=== PATIENT | male | born 1970 | race African-American/Black ===

== ENCOUNTER 2021-06-28 01:32 | Day surgery (SDC) | payer OTHER, SELFPAY ==
[2021-06-12 13:17] VITALS: BMI 32.3
--- NOTE | 2021-06-27 13:42 | PM.HPGS ---
History of Present Illness History of Present Illness Consent: Risks, benefits, and alternatives have been discussed and questions answered. Patient agrees to proceed with procedure. Chief complaint: neoplasm screening Narrative: Jelani Oliveira is a 51 year old male who was referred for colon cancer screening. Review of Systems Review of Systems: All systems reviewed & are unremarkable except as noted in HPI and below PMFSH Past Medical History Medical History (Updated 06/28/21 @ 08:53 by Bull Madera MD) Hyperlipidemia Family History Family History Father Hypertension Family history of elevated blood lipids Family history of cardiovascular disease Mother Hypertension Family history of cardiovascular disease Social History Social History Smoking status: Never smoker Alcohol intake: former Substance use: never Substance use type: does not use Living arrangements: with family Spiritual care concerns: No Meds Home Medications and Allergies Home Medications Medication Instructions Recorded Confirmed Type atorvastatin 10 mg tablet 10 mg PO DAILY #90 tablet 01/30/21 06/28/21 Rx ferrous sulfate 325 mg (65 mg 325 mg PO DAILY 01/30/21 06/28/21 History iron) tablet multivitamin 1 tablet PO DAILY 01/30/21 06/28/21 History sildenafil 50 mg tablet 50 mg PO DAILY PRN #10 tablet 02/27/21 06/28/21 Rx Allergies Allergy/AdvReac Type Severity Reaction Status Date / Time No Known Allergies Allergy Verified 06/28/21 08:38 Exam Resp: Auscultation: clear to auscultation bilaterally Cardio: Rate: regular rate Rhythm: regular rhythm GI: GI Palp: Yes Soft to palpation and No Tenderness to palpation present (GI) Assessment and Plan Assessment and plan (1) Colon cancer screening: Code(s): Z12.11 - Encounter for screening for malignant neoplasm of colon Status: Acute Assessment and Plan: Colonoscopy with possible biopsy or polypectomy or cautery or injection of substances.
[2021-06-28 08:40] VITALS: BP 143/97; PULSE 83; RESP 15; TEMP 36.7; O2SAT 99
[2021-06-28] MEDS: LACTATED RINGERS 1,000 ML 150 ML IV CONT (08:45)
--- NOTE | 2021-06-28 09:05 | WPDANESEPPF ---
Anes - Initial Pre Proc Eval Procedure: Operation Date: 06/28/21 09:30 Proposed Procedures p Screening Colonoscopy - Holland Pastrana MD Date/Time: 06/28/21 09:05 Surgeon: Holland Pastrana MD Pre Op Diagnosis: neoplasm screening Patient Data Age: 51 Gender: M Height: 1.78 m Weight: 102.27 kg Last Vital Signs Temp 98.1 F 06/28/21 08:40 Pulse 83 06/28/21 08:40 Resp 15 06/28/21 08:40 BP 143/97 H 06/28/21 08:40 Pulse Ox 99 06/28/21 08:40 Allergies Allergy/AdvReac Type Severity Reaction Status Date / Time No Known Allergies Allergy Verified 06/28/21 08:38 Home Medications Medication Instructions Recorded Confirmed Type atorvastatin 10 mg tablet 10 mg PO DAILY #90 tablet 01/30/21 06/28/21 Rx ferrous sulfate 325 mg (65 mg 325 mg PO DAILY 01/30/21 06/28/21 History iron) tablet multivitamin 1 tablet PO DAILY 01/30/21 06/28/21 History sildenafil 50 mg tablet 50 mg PO DAILY PRN #10 tablet 02/27/21 06/28/21 Rx Patient hx anesthesia problems: none Family hx anesthesia problems: none Results Review: All pre-operative results and documents have been reviewed as part of the pre-operative evaluation. [facility] Past Medical History Medical History (Updated 06/28/21 @ 08:53 by Bull Madera MD) Hyperlipidemia Family History Family History Father Hypertension Family history of elevated blood lipids Family history of cardiovascular disease Mother Hypertension Family history of cardiovascular disease Social History Social History Smoking status: Never smoker Alcohol intake: former Substance use: never Substance use type: does not use Living arrangements: with family Spiritual care concerns: No Anes - Eval Final PreProcedure Day of Procedure 06/28/21 09:05 Patient weight: obese Heart: regular rate and rhythm Lungs: clear to auscultation Airway: Mallampati scale class II Neurological: alert and oriented Last oral intake: >/= 8 hours ASA classification: II Emergent: no Anesthetic plan: proceed Anesthesia type and monitoring: general GIVS and standard monitoring Results Review: All pre-operative results and documents have been reviewed as part of the pre-operative evaluation. Informed Consent: The patient's anesthetic plan and its attendant risks and benefits were discussed with the patient/family/POA. Questions were solicited and answers provided to the satisfaction of the patient/family/POA.
[2021-06-28 09:59] VITALS: BP 116/74; PULSE 79; RESP 21; O2SAT 99
[2021-06-28 10:09] VITALS: BP 135/95; PULSE 75; RESP 20; O2SAT 100
[2021-06-28 10:18] VITALS: BP 150/106; PULSE 66; RESP 17; O2SAT 99
== END 2021-06-28 10:30 | disposition home or self-care (01) ==
PROVIDERS: PCP Family Medicine; Visit Provider Internal Medicine Gastroenterology
PROC: 0DJD8ZZ Inspection of Lower Intestinal Tract, Via Natural or Artificial Opening Endoscopic (ICD-10-PCS; CPT 45378; principal; 2021-06-28 09:30)
DX: Z12.11 Encounter for screening for malignant neoplasm of colon (principal); E78.5 Hyperlipidemia, unspecified; E66.9 Obesity, unspecified; Z68.32 Body mass index [BMI] 32.0-32.9, adult
CPT/HCPCS: 45378; J2704; J7120

== ENCOUNTER 2024-03-18 08:12 | Outpatient (CLI) | payer OTHER, SELFPAY ==
[2024-03-18 14:44] LABS: Alanine Aminotransferase 18 U/L (6-50); Albumin Level 4.6 g/dL (3.5-5.1); Alkaline Phosphatase 60 U/L (38-126); Anion Gap 11 mmol/L (4-12); Aspartate Amino Transferase 54 U/L (17-59); Bilirubin,Total 0.6 mg/dL (0.2-1.3); Blood Urea Nitrogen 16 mg/dL (9-20); Calcium 9.8 mg/dL (8.4-10.2); Carbon Dioxide 29 mmol/L (22-30); Chloride 101 mmol/L (98-107); Cholesterol 155 mg/dL (0-200); Estimated Glomerular Filt Rate > 60; Glucose 83 mg/dL (65-110); HDL Direct 47 mg/dL; Potassium 3.8 mmol/L (3.4-5.0); Sodium 141 mmol/L (137-145); Triglycerides 66 mg/dL (<150)
[2024-03-18 14:55] LABS: LDL Cholesterol Direct 92 mg/dL
== END 2024-03-18 08:13 | disposition home or self-care (01) ==
LOC: ANHGOSHLAB 08:13
PROVIDERS: PCP Family Medicine; Visit Provider Family Medicine
DX: D64.9 Anemia, unspecified (principal); E78.5 Hyperlipidemia, unspecified; I10 Essential (primary) hypertension
CPT/HCPCS: 36415; 80053; 80061

== ENCOUNTER 2025-04-26 07:53 | Outpatient (CLI) | payer OTHER, SELFPAY ==
[2025-04-26 12:52] LABS: Hematocrit 47.2 % (42.0-52.0); Hemoglobin 14.3 g/dL (14.0-18.0); Mean Corpuscular HGB Conc 30.3 g/dl (32-36); Mean Corpuscular Hemoglobin 22.8 pg (26-34); Mean Corpuscular Volume 75.2 fl (80-100); Platelet Count Result 214 k/mm3 (150-375); Red Blood Count 6.28 M/mm3 (4.6-6.20); White Blood Count 6.0 K/mm3 (4.5-10.0)
[2025-04-26 14:33] LABS: Alanine Aminotransferase 19 U/L (6-50); Albumin Level 4.3 g/dL (3.5-5.1); Alkaline Phosphatase 61 U/L (38-126); Anion Gap 7 mmol/L (4-12); Aspartate Amino Transferase 45 U/L (17-59); Bilirubin,Total 0.6 mg/dL (0.2-1.3); Blood Urea Nitrogen 10 mg/dL (9-20); Calcium 9.8 mg/dL (8.4-10.2); Carbon Dioxide 26 mmol/L (22-30); Chloride 105 mmol/L (98-107); Cholesterol 168 mg/dL (0-200); Estimated Glomerular Filt Rate > 60; Glucose 78 mg/dL (65-110); HDL Direct 44 mg/dL; Potassium 4.5 mmol/L (3.4-5.0); Sodium 138 mmol/L (137-145); Total Protein 7.4 g/dL (6.3-8.2); Triglycerides 66 mg/dL (<150)
[2025-04-26 15:06] LABS: Prostate Specific Antigen 1.8 ng/mL (< OR = 4.0); Thyroid Stimulating Hormone 2.260 uIU/mL (0.465-4.680)
== END 2025-04-26 07:54 | disposition home or self-care (01) ==
PROVIDERS: PCP Family Medicine; Visit Provider Family Medicine
DX: E78.5 Hyperlipidemia, unspecified (principal); I10 Essential (primary) hypertension; Z79.899 Other long term (current) drug therapy; Z12.5 Encounter for screening for malignant neoplasm of prostate
CPT/HCPCS: 36415; 80053; 80061; 84153; 84443; 85027; G0103

== ENCOUNTER 2025-05-18 13:56 | Observation (INO) | payer OTHER, SELFPAY ==
[2025-05-18] VITALS (40 sets, daily range): BP systolic 130–156; BP diastolic 90–112; PULSE 69–91; RESP 11–26; TEMP 36.6–36.7; O2SAT 95–100; BMI 30.5
--- NOTE | ~2025-05-18 | NM_ITS ---
EXAMINATION: NM stress w perf spect multi DATE: 05/19/2025 12:49 INDICATION: Abnormal EKG TECHNIQUE: Rest images were obtained following intravenous administration of 11 mCi Tc99m tetrofosmin (Myoview). The patient performed an exercise activity. At peak exercise, 35.3 mCi Tc99m tetrofosmin (Myoview) was administered intravenously, and stress images were obtained. Data was reconstructed into short axis and horizontal and vertical long axis SPECT images. Gated SPECT images were also obtained. COMPARISON: None. FINDINGS: There is normal left ventricular perfusion without definite evidence of reversible or fixed perfusion abnormality to suggest ischemia or infarction. There is normal left ventricular chamber size, wall motion and ejection fraction. Left ventricular ejection fraction measures 52%. IMPRESSION: 1. Normal myocardial perfusion at rest and during stress. 2. Left ventricular ejection fraction measuring 52%. Reviewed, dictated and finalized at location A.
--- NOTE | ~2025-05-18 | XR_ITS ---
EXAMINATION: XR chest 2V 05/18/2025 14:45 INDICATION: Weakness PROCEDURE: 2 view chest COMPARISON: No prior studies for comparison. FINDINGS: The lungs are clear. The cardiomediastinal silhouette is within normal limits. There are no pleural effusions. There is no pneumothorax suspected. IMPRESSION: 1: NO ACUTE CARDIOPULMONARY DISEASE. Reviewed, dictated and finalized at location O.
--- NOTE | 2025-05-18 14:12 | ECG_ITS ---
Test Date: 2025-05-18 14:17:22 Measurements Intervals [place] Rate: 71 P: 54 AR: 188 QRS: 47 QRSD: 105 T: 71 QT: 404 QTc: 439 Interpretive Statements SINUS RHYTHM No previous ECG available for comparison Electronically Signed On 05-19-2025 15:01:44 CDT by Rickie Guzman M.D.
--- NOTE | 2025-05-18 14:24 | PC.NURSE ---
Patient given sandwich and juice per verbal order from Dr. Begum
[2025-05-18 14:29] LABS: Hematocrit 47.6 % (42.0-52.0); Hemoglobin 14.8 g/dL (14.0-18.0); Immature Granulocyte Percent A 0.4 % (0-0.5); Lymphocytes Absolute Auto 1.68 K/mm3 (0.9-3.2); Mean Corpuscular HGB Conc 31.1 g/dl (32-36); Mean Corpuscular Hemoglobin 23.0 pg (26-34); Mean Corpuscular Volume 73.9 fl (80-100); Nucleated Red Blood Cells Absolute Auto 0.000 K/mm3 (0.0-0.012); Nucleated Red Blood Cells Perc 0.0 % (0.0-0.2); Platelet Count Result 187 k/mm3 (150-375); Red Blood Count 6.44 M/mm3 (4.6-6.20); White Blood Count 9.6 K/mm3 (4.5-10.0)
[2025-05-18 14:43] LABS: Alanine Aminotransferase 24 U/L (6-50); Albumin Level 4.8 g/dL (3.5-5.1); Alkaline Phosphatase 78 U/L (38-126); Anion Gap 12 mmol/L (4-12); Aspartate Amino Transferase 37 U/L (17-59); Bilirubin,Total 0.5 mg/dL (0.2-1.3); Blood Urea Nitrogen 16 mg/dL (9-20); Calcium 10.1 mg/dL (8.4-10.2); Carbon Dioxide 27 mmol/L (22-30); Chloride 95 mmol/L (98-107); Estimated CRCL calculation 79 ml/min; Estimated Glomerular Filt Rate > 60; Glucose 145 mg/dL (65-110); Potassium 3.5 mmol/L (3.4-5.0); Sodium 134 mmol/L (137-145); Total Protein 8.1 g/dL (6.3-8.2)
--- NOTE | 2025-05-18 14:43 | ED_ITS ---
HPI - Dizziness General Chief Complaint: Dizziness Stated Complaint: dizzy & weak during workout, B.S. 41 Time Seen by Provider: 05/18/25 14:17 History of Present Illness HPI Narrative: Pt was at gym and developed feeling of dizziness and felt weak and lightheaded. Pt denies CP or palpitations or recent black or bloody stools or fever. EMS reports blood sugar was 41 and gave oral glucose and patient now feels better. Family reports this same thing happened 5 days ago at home but symptoms resolved. Pt has no history of hypoglycemia and ate normal breakfast this am. Related Data Home Medications ?Medication ?Instructions ?Recorded ?Confirmed ?Last Taken ?Type ferrous sulfate 325 mg (65 mg 325 mg PO DAILY 01/30/21 04/27/25 06/23/21 History iron) tablet (Feosol) multivitamin 1 tablet PO DAILY 01/30/21 0 04/27/25 Unknown History Allergies Allergy/AdvReac Type Severity Reaction Status Date / Time lisinopril AdvReac Mild dry cough Verified 04/27/25 08:59 Review of Systems 2 Review of Systems: All systems reviewed & are unremarkable except as noted in HPI and below PMFSH Past Medical History Medical History Hyperlipidemia Family History Family History Father Hypertension Family history of elevated blood lipids Family history of cardiovascular disease Mother Hypertension Family history of cardiovascular disease Social History Social History Smoking status: Never smoker Second hand tobacco smoke exposure: No Alcohol intake: former Substance use: never Substance use type: does not use Lack of Transportation: No Lack of Food: Never True Current Housing: I Have Housing Concerned About Future Housing: No Difficulty Paying Gas/Electric Bills: No Difficulty Paying for Meds: No Currently Unemployed: No Education: Bachelor's Degree Difficulty w/ Childcare or Family Care: No Living arrangements: with family Spiritual care concerns: No Exam 2 Const: General: healthy appearing and no acute distress Nutritional Appearance: well nourished Orientation/consciousness: patient oriented x3 Limitations: no limitations HENMT: Head: normal to inspection Face and sinus: normal facial exam M outh: Yes Normal oral and palatal mucosa present Throat: posterior oropharynx normal Eyes: Pupils: Equal, round and reactive pupils present EOM: EOMs intact bilaterally Neck: Neck: normal visual inspection Chest: Chest palpation & inspection: normal inspection of the chest Resp: Effort & Inspection: normal respiratory effort Auscultation: clear to auscultation bilaterally Cardio: Rate: regular rate Rhythm: regular rhythm GI: GI Palp: Yes Soft to palpation and Yes Tenderness to palpation present (GI) Auscultation: normal bowel sounds Skin: General skin exam: normal color Rashes: no rashes Wounds: no wounds Neuro: General: patient oriented x3, moves all extremities, no meningeal signs, no focal motor deficits and CN's II-XI intact bilaterally Speech: n ormal speech Extrem: General: normal to inspection and no clubbing, cyanosis or edema Psych: Mental Status: mental status grossly normal Affect: normal affect Attitude: cooperative Course Vital Signs Vital signs: Vital Signs Temperature 98.1 F 05/18/25 14:04 Pulse Rate 74 05/18/25 14:04 Respiratory Rate 17 05/18/25 14:04 Blood Pressure 156/97 H 05/18/25 14:04 Pulse Oximetry 100 05/18/25 14:04 Oxygen Delivery Room Air 05/18/25 14:04 Temperature 98.1 F 05/18/25 14:13 Pulse Rate 77 05/18/25 18:50 Respiratory Rate 16 05/18/25 18:50 Blood Pressure 136/112 H 05/18/25 18:50 Pulse Oximetry 95 05/18/25 18:50 Oxygen Delivery Room Air 05/18/25 14:13 MDM - Dizziness MDM Narrative Medical decision making narrative: Pt presents with dizziness and hypoglycemia. Pt better now. Will run some labs and recheck and feed pt. Pt has slight st depression in inferior and lateral leads on initial EKG, this has mostly resolved on 2mnd ekg which is troubling. discussed with Dr Cardoso and sent her both EKG's and she would prefer to admit tonight so she can stress him tomorrow. Discussed with Cary Milan and agrees t admit Differential Diagnosis Differential diagnosis: Likely benign paroxysmal positional vertigo, orthostatic hypotension, acute vestibular neuronitis and other (hypoglycemia) Lab Data Attestation: I reviewed the patient's lab results. 05/18/25 14:21 05/18/25 14:21 Labs: Lab Results 0905/18/25 05/18/25 Range/Units 14:10 14:21 14:53 WBC 9.6 (4.5-10.0) K/mm3 RBC 6.44 H (4.6-6.20) M/mm3 Hgb 14.8 (14.0-18.0) g/dL Hct 47.6 (42.0-52.0) % MCV 73.9 L (80-100) fl MCH 23.0 L (26-34) pg MCHC 31.1 L (32-36) g/dl RDW 14.8 H (11.5-14.5) % Plt Count 187 (150-375) k/mm3 MPV 10.3 (7.4-10.4) fl Immature Gran % (Auto) 0.4 (0-0.5) % Neut % (Auto) 71.4 (45.5-73.1) % Lymph % (Auto) 17.4 L (18.3-44.2) % [place] % (Auto) 7.1 (2.6-8.5) % Eos % (Auto) 3.3 (0-4.4) % Baso % (Auto) 0.4 (0.2-1.2) % Lymph # (Auto) 1.68 (0.9-3.2) K/mm3 [place] # (Auto) 0.7 H (0.1-0.6) K/mm3 Eos # (Auto) 0.3 (0-0.3) K/mm3 Baso # (Auto) 0.0 (0.0-0.1) K/mm3 Abs Immat Gran (auto) 0.04 H (0.00-0.031) K/mm3 Absolute Neuts (auto) 6.9 H (1.3-6.7) K/mm3 Absolute Nucleated RBC 0.000 (0.0-0.012) K/mm3 Band Neutrophils % Not Reportable Nucleated RBC % 0.0 (0.0-0.2) % Atypical Lymphocytes Present Platelet Estimate Adequate (Adequate) Microcytosis 1+ (NORMAL) Schistocytes None seen Sodium 134 L (137-145) mmol/L Potassium 3.5 (3.4-5.0) mmol/L Chloride 95 L (98-107) mmol/L Carbon Dioxide 27 (22-30) mmol/L Anion Gap 12 (4-12) mmol/L BUN 16 (9-20) mg/dL Creatinine 1.11 (0.7-1.3) mg/dL Estim Creat Clear Calc 79 ml/min Estimated GFR > 60 (59 - ) Glucose 145 H (65-110) mg/dL POC Capillary Glucose 158 H (65-105) mg/dl Calcium 10.1 (8.4-10.2) mg/dL Total Bilirubin 0.5 (0.2-1.3) mg/dL AST 37 (17-59) U/L ALT 24 (6-50) U/L Alkaline Phosphatase 78 (38-126) U/L Troponin I < 0.012 (0.000-0.034) ng/mL Total Protein 8.1 (6.3-8.2) g/dL Albumin 4.8 (3.5-5.1) g/dL Urine Color Dark yellow (Yellow) Urine Appearance Clear (Clear) Urine pH 7.0 (5.0-9.0) Ur Specific [place] 1.016 (1.001-1.035) Urine Protein Negative (Negative) mg/dL Urine Glucose (UA) Negative (Negative) mg/dL Urine Ketones 2+ H (Negative) mg/dL Ur Blood (Man) Negative (Negative) Urine Nitrate Negative (Negative) Urine Bilirubin Negative (Negative) Urine Urobilinogen 0.2 (<2.0) mg/dL Leukocyte Esterase Rfl Negative (Negative) SHEN/UL 05/18/25 05/18/25 Range/Units 15:44 17:19 WBC (4.5-10.0) K/mm3 RBC (4.6-6.20) M/mm3 Hgb (14.0-18.0) g/dL Hct (42.0-52.0) % MCV (80-100) fl MCH (26-34) pg MCHC (32-36) g/dl RDW (11.5-14.5) % Plt Count (150-375) k/mm3 MPV (7.4-10.4) fl Immature Gran % (Auto) (0-0.5) % Neut % (Auto) (45.5-73.1) % Lymph % (Auto) (18.3-44.2) % [place] % (Auto) (2.6-8.5) % Eos % (Auto) (0-4.4) % Baso % (Auto) (0.2-1.2) % Lymph # (Auto) (0.9-3.2) K/mm3 [place] # (Auto) (0.1-0.6) K/mm3 Eos # (Auto) (0-0.3) K/mm3 Baso # (Auto) (0.0-0.1) K/mm3 Abs Immat Gran (auto) (0.00-0.031) K/mm3 Absolute Neuts (auto) (1.3-6.7) K/mm3 Absolute Nucleated RBC (0.0-0.012) K/mm3 Band Neutrophils % Nucleated RBC % (0.0-0.2) % Atypical Lymphocytes Platelet Estimate (Adequate) Microcytosis (NORMAL) Schistocytes Sodium (137-145) mmol/L Potassium (3.4-5.0) mmol/L Chloride (98-107) mmol/L Carbon Dioxide (22-30) mmol/L Anion Gap (4-12) mmol/L BUN (9-20) mg/dL Creatinine (0.7-1.3) mg/dL Estim Creat Clear Calc ml/min Estimated GFR (59 - ) Glucose (65-110) mg/dL POC Capillary Glucose 137 H (65-105) mg/dl Calcium (8.4-10.2) mg/dL Total Bilirubin (0.2-1.3) mg/dL AST (17-59) U/L ALT (6-50) U/L Alkaline Phosphatase (38-126) U/L Troponin I < 0.012 (0.000-0.034) ng/mL Total Protein (6.3-8.2) g/dL Albumin (3.5-5.1) g/dL Urine Color (Yellow) Urine Appearance (Clear) Urine pH (5.0-9.0) Ur Specific [place] (1.001-1.035) Urine Protein (Negative) mg/dL Urine Glucose (UA) (Negative) mg/dL Urine Ketones (Negative) mg/dL Ur Blood (Man) (Negative) Urine Nitrate (Negative) Urine Bilirubin (Negative) Urine Urobilinogen (<2.0) mg/dL Leukocyte Esterase Rfl (Negative) SHEN/UL Imaging Data Attestation: I personally reviewed and interpreted this imaging study as follows: My impression: nad ECG Data EKG #1: Interpretation: nsr rate nl minimal st depression 2,3, avf and lateral leads, EKG #[address] depressin nealry all resolved Discharge Plan Discharge Clinical Impression: Dizziness, Acute electrocardiogram changes Patient Disposition: Still a Patient Condition: Stable Patient Language: Kittitian Prescriptions: No Action multivitamin Tablet 1 tablet PO DAILY Patient Comments: Myovite supplement packet ferrous sulfate [Feosol] 325 mg (65 mg iron) tablet 325 mg PO DAILY losartan 50 mg tablet 75 mg PO DAILY Qty: 135 1RF sildenafil 100 mg tablet 100 mg PO DAILY PRN (Reason: sexual activity) Qty: 30 0RF Rx Instructions: administer 30 minutes to 4 hours before activity atorvastatin 10 mg tablet See Rx Instructions .ROUTE .COMPLEX Qty: 90 1RF Dose Instruction: TAKE 1 TABLET BY MOUTH EVERY DAY Rx Instructions: TAKE 1 TABLET BY MOUTH EVERY DAY Follow-up/Referrals: Maryjo Craft DO [Primary Care Provider, Family Practice]
[2025-05-18 14:50] LABS: Microcytosis 1+ (NORMAL); Schistocytes None Seen
[2025-05-18 15:07] LABS: Add Urine Microscopic? YES; Appearance Urine Clear (Clear); Glucose Urine UA Negative (Negative); Leukocyte Esterase Ur Negative LEU/UL (Negative); Nitrate Urine Negative (Negative); Specific Grav Ur 1.016 (1.001-1.035)
[2025-05-18 15:33] LABS: Troponin I < 0.012 ng/mL (0.000-0.034)
--- NOTE | 2025-05-18 16:22 | PC.NURSE ---
patient ambulatory to bathroom and back to room with no assist. no complaints of dizziness or lightheadedness. KIMBERLY eLbron aware.
--- NOTE | 2025-05-18 17:17 | ECG_ITS ---
Test Date: 2025-05-18 17:20:54 Measurements Intervals [place] Rate: 68 P: 50 CO: 178 QRS: 55 QRSD: 100 T: 61 QT: 401 QTc: 427 Interpretive Statements SINUS RHYTHM Compared to ECG 05/18/2025 14:17:22 No significant changes Electronically Signed On 05-19-2025 15:14:40 CDT by Rickie Guzman M.D.
[2025-05-18 17:52] LABS: Troponin I < 0.012 ng/mL (0.000-0.034)
--- NOTE | 2025-05-18 20:40 | P.HP_ITS ---
H&P: HPI History of Present Illness Date/Time: 05/18/25 20:40 Chief Complaint: Dizziness Narrative: 55-year-old male history of hyperlipidemia presents the hospital complaining of dizziness and weakness. Patient was at the gym complaining of weakness and dizziness and looked extremely ill so EMS was called he was found have a blood sugar of 41. Patient states that he has no history of hypoglycemia. 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 He states that he goes through periods of eating extremely healthy. He recently went on vacation enjoyed eating a lot of food so whenever he got back from vacation a started eating extremely healthy can. Patient states that a is of fruit smoothie in the morning, salad for lunch and then usually a salmon and vegetables for dinner. He states that he works out in the morning and then again in the evening at home. He states he usually does not have a protein shake until in the evening. The patient states that he has noticed that he has been will agitated lately. And often has been dreaming a few. He has not been having protein her carbs during the day. Lab work in the ED shows glucose at 6:45 p.m., troponins negative x2, dark yellow urine negative for infection. Chest x-ray shows no acute cardiopulmonary process. EKG shows sinus rhythm rate of 68. Cardiology was consulted and is recommending a inpatient stress test. Review of Systems Review of Systems: 12 systems were reviewed and are negativ e except for as per HPI. [facility] Past Medical History Medical History Hypertension Hyperlipidemia Family History Family History Father Hypertension Family history of elevated blood lipids Family history of cardiovascular disease Mother Hypertension Family history of cardiovascular disease Social History Social History (Updated 05/18/25 @ 21:42 by Ariel Paez RN) Smoking status: Never smoker Second hand tobacco smoke exposure: No Alcohol intake: former Substance use: never Substance use type: does not use Lack of Transportation: No Lack of Food: Never True Current Housing: I Have Housing Concerned About Future Housing: No Difficulty Paying Gas/Electric Bills: No Difficulty Paying for Meds: No Currently Unemployed: No Education: Bachelor's Degree Difficulty w/ Childcare or Family Care: No Living arrangements: with family Occupation/Education: other Gender identity (if verbalized by the patient): Male Sexual Orientation (if Verbalized by the Patient): Straight or Heterosexual Spiritual care concerns: No Agree to blood products: Yes Meds Home Medications and Allergies Home Medications ?Medication ?Instructions ?Recorded ?Confirmed ?Type ferrous sulfate 325 mg (65 mg 325 mg PO DAILY 01/30/21 05/18/25 History iron) tablet (Feosol) multivitamin 1 tablet PO DAILY 01/30/21 0 05/18/25 History losartan 50 mg tablet 75 mg (1.5 x 50 mg) PO DAILY #135 01/02/25 05/18/25 Rx tabs sildenafil 100 mg tablet 100 mg PO DAILY PRN sexual 0 02/23/25 05/18/25 Rx activity #30 tabs atorvastatin 10 mg tablet See Rx Instructions .Route 0 04/03/25 05/18/25 Rx .COMPLEX #90 tabs Allergies Allergy/AdvReac Type Severity Reaction Status Date / Time lisinopril AdvReac Mild dry cough Verified 04/27/25 08:59 Vital Signs Vital Signs - 24 hr 05/18/25 14:04 05/18/25 14:13 05/18/25 14:17 Temperature 98.1 F 98.1 F Pulse Rate 74 74 73 Respiratory Rate 17 18 13 Blood Pressure 156/97 H 156/97 H Pulse Oximetry 100 100 100 Oxygen Delivery Room Air Room Air 05/18/25 14:18 05/18/25 14:51 05/18/25 15:06 Temperature Pulse Rate 88 73 81 Respiratory Rate 15 19 14 Blood Pressure 156/91 H Pulse Oximetry 100 100 99 Oxygen Delivery 05/18/25 15:15 05/18/25 15:25 05/18/25 15:28 Temperature Pulse Rate 91 85 90 Respiratory Rate 18 14 17 Blood Pressure 156/100 H 152/93 H Pulse Oximetry 98 99 99 Oxygen Delivery 05/18/25 15:30 05/18/25 15:59 05/18/25 16:00 Temperature Pulse Rate 82 83 77 Respiratory Rate 17 14 16 Blood Pressure Pulse Oximetry 100 100 99 Oxygen Delivery 05/18/25 16:02 05/18/25 16:03 05/18/25 16:15 Temperature Pulse Rate 91 81 84 Respiratory Rate 16 16 14 Blood Pressure 137/94 H 137/94 H Pulse Oximetry 98 98 100 Oxygen Delivery 05/18/25 16:30 05/18/25 16:45 05/18/25 17:01 Temperature Pulse Rate 81 75 73 Respiratory Rate 20 11 L 15 Blood Pressure 145/96 H Pulse Oximetry 100 100 99 Oxygen Delivery 05/18/25 17:33 05/18/25 17:41 05/18/25 17:45 Temperature Pulse Rate 70 73 77 Respiratory Rate 13 14 12 Blood Pressure 137/96 H Pulse Oximetry 98 99 100 Oxygen Delivery 05/18/25 17:46 05/18/25 17:58 05/18/25 18:00 Temperature Pulse Rate 79 86 76 Respiratory Rate 11 L 16 12 Blood Pressure 134/97 H 134/97 H Pulse Oximetry 100 99 100 Oxygen Delivery 05/18/25 18:01 05/18/25 18:18 05/18/25 18:30 Temperature Pulse Rate 84 Respiratory Rate 12 Blood Pressure 130/90 Pulse Oximetry 99 98 99 Oxygen Delivery 05/18/25 18:45 05/18/25 18:50 05/18/25 18:52 Temperature Pulse Rate 77 80 Respiratory Rate 16 19 Blood Pressure 136/112 H 148/105 H Pulse Oximetry 99 95 98 Oxygen Delivery 05/18/25 18:54 05/18/25 19:00 05/18/25 19:01 Temperature Pulse Rate 76 75 78 Respiratory Rate 26 H 13 14 Blood Pressure 136/112 H 133/94 H Pulse Oximetry 98 98 100 Oxygen Delivery 05/18/25 19:15 05/18/25 19:16 05/18/25 19:30 Temperature Pulse Rate 82 81 77 Respiratory Rate 17 16 18 Blood Pressure 149/106 H Pulse Oximetry 97 96 98 Oxygen Delivery 05/18/25 19:45 Temperature Pulse Rate 80 Respiratory Rate 15 Blood Pressure Pulse Oximetry 98 Oxygen Delivery Exam Narrative: General: well appearing, appears stated age. HEENT: normocephalic, atraumatic. Mucous membranes moist. EOMI, PERRLA, bilateral sclera anicteric, no conjunctival injection. Neck supple without JVD, lymphadenopathy, or bruit. Respiratory: clear to ascultation bilaterally. No rales/rhonic/wheezes. Cardiovascular: Regular rate and rhythm, normal S1-S2 upon ascultation. No murmurs, rubs, or clicks. PMI is nondisplaced, capillary refill less than 3 second. Abdomen: Soft, round, no pulsatile masses, nondistended and nontender. No rebound, no guarding. No CVA tenderness, no hepatosplenomegaly. Bowel sounds present to all four quadrants. No high pitch or tinkling sounds, resonant to percussion. Extremities: No cyanosis, clubbing, or edema present. Pulses are palpable 2/2. Active ROM to all four extremities. Neuro: Alert and orientated x 4. PERRLA. Cranial nerves 2-12 intact without focal deficit. Skin: Warm, dry, and intact, without rash, erythema, or lesion. Psych: pleasant, cooperative, normal speech, normal affect, no hallucinations, no dysarthia H&P: Results Labs Labs: Short CBC 05/18/25 Range/Units 14:21 WBC 9.6 (4.5-10.0) K/mm3 Hgb 14.8 (14.0-18.0) g/dL Hct 47.6 (42.0-52.0) % Plt Count 187 (150-375) k/mm3 BMP 05/18/25 14:21 Sodium 134 L Potassium 3.5 Chloride 95 L Carbon Dioxide 27 BUN 16 Creatinine 1.11 Glucose 145 H Calcium 10.1 Cardiac Enzymes 05/18/25 05/18/25 Range/Units 14:21 17:19 Troponin I < 0.012 < 0.012 (0.000-0.034) ng/mL Liver Function 05/18/25 Range/Units 14:21 Total Bilirubin 0.5 (0.2-1.3) mg/dL AST 37 (17-59) U/L ALT 24 (6-50) U/L Alkaline Phosphatase 78 (38-126) U/L Albumin 4.8 (3.5-5.1) g/dL Urine 05/18/25 Range/Units 14:53 Urine Color Dark yellow (Yellow) Urine Appearance Clear (Clear) Urine pH 7.0 (5.0-9.0) Ur Specific [place] 1.016 (1.001-1.035) Urine Protein Negative (Negative) mg/dL Urine Glucose (UA) Negative (Negative) mg/dL Assessment and Plan Assessment and plan (1) Acute electrocardiogram changes: Code(s): R94.31 - Abnormal electrocardiogram [ECG] [EKG] Status: Acute Assessment and Plan: Moderate ST depression on EKG Cardiology consulted Stress test in a.m. Trend troponin NPO midnight, okay for diet now (2) Dizziness: Code(s): R42 - Dizziness and giddiness Status: Acute Assessment and Plan: Orthostatic vital signs Telemetry monitoring Likely related to hypoglycemia (3) Hypoglycemia: Code(s): E16.2 - Hypoglycemia, unspecified Status: Acute Assessment and Plan: Could be diet related as patient is not having protein are carbs until late in the ED evening 2 a.m. blood sugar Hemoglobin A1c Recommended having protein shakes in the morning (4) Hyperlipidemia: Qualifiers: Hyperlipidemia type: pure hypercholesterolemia Qualified Code(s): E78.00 - Pure hypercholesterolemia, unspecified Code(s): E78.5 - Hyperlipidemia, unspecified Status: Acute Assessment and Plan: continue statin Quality VTE Prophylaxis VTE prophylaxis: mechanical ordered Hospitalist MIPS Advance Care Plan I have confirmed that the patient's Advanced Care Plan is present, code status is documented, or surrogate decision maker is listed in patient medical record.: Yes Medication Reconciliation I have utilized all available resources to obtain, update and review the patients current medications (includes all prescriptions, OTC, herbals, cannabis, and nutritional supplements).: Yes
--- NOTE | 2025-05-18 21:27 | ADMGEN ---
This patient, Jelani Oliveira II, was admitted to [facility] Surg Room 301-01. Patient/family oriented to hospital policies and general routines including ID bracelet, bed and alarms, visiting hours, pain management, procedures, bathroom and other care routines, personal items, smoking policy, room service/diet, and visiting hours. Information on how to activate the Rapid Response Team has been discussed. Patient/Family are encouraged to report perceived risks to care and to ask questions if they do not understand what they are told or what they should do.
[2025-05-19] VITALS (7 sets, daily range): BP systolic 147–155; BP diastolic 89–95; PULSE 65–106; RESP 18–20; TEMP 36.4–36.9; O2SAT 99
--- NOTE | 2025-05-19 | ECHO_ITS ---
Patient Info Name: Jelani Oliveira Age: 55 years : 1970 Gender: Male Ht: 70 in Wt: 212 lbs BSA: 2.20 m2 HR: 71 bpm BP: 155 / 89 mmHg Technical Quality: Good Exam Date: 05/19/2025 8:52 AM Patient Status: O Admit Date: 05/18/2025 Exam Type: CA echo doppler color flow Complete two-dimensional, color flow and Doppler transthoracic echocardiogram is performed. Staff Referring Physician: Rickie Guzman Industrial Eng: Mynor Mills III Attending Provider: Marcie Madrid MD Summary 1. Complete two-dimensional, color flow and Doppler transthoracic echocardiogram is performed. 2. The left ventricle is normal in size and systolic function. The left ventricular ejection fraction is visually estimated to be 60-65%. There are no regional wall motion abnormalities. There is normal diastolic function. 3. The right ventricle is normal in size and systolic function. 4. There are no significant valvular abnormalities. Left Ventricle The left ventricle is normal in size and systolic function. The left ventricular ejection fraction is visually estimated to be 60-65%. There are no regional wall motion abnormalities. There is normal diastolic function. Right Ventricle The right ventricle is normal in size and systolic function. Left Atria The left atrium is normal size. Right Atria The right atrium is normal size. Atrial Septum The atrial septum is normal. Aortic Valve The aortic valve is trileaflet and opens well. There is no aortic regurgitation. Mitral Valve The mitral valve is normal. There is no mitral regurgitation. Tricuspid Valve The tricuspid valve is normal. There is trace tricuspid regurgitation. Pericardium/Pleural Pericardium is normal in appearance with no evidence for significant pericardial effusion. Inferior Vena Cava Normal inferior vena cava with >50% collapse upon inspiration consistent with normal right atrial pressure, 3 mmHg. Aorta The aortic root at the level of the sinus of Valsalva measures 3.2 cm in diameter. Left Ventricular Outflow Tract Name Value Normal LVOT 2D LVOT Diameter 2.5 cm LVOT Doppler LVOT Peak Velocity 114 cm/s LVOT Peak Gradient 5 mmHg LVOT Mean Gradient 2 mmHg LVOT VTI 23 cm LVOT VTI/AV VTI Ratio 0.9 LVOT Stroke Volume 110 ml LVOT CO 18.6 l/min LVOT CI 8.4 l/min/m2 Pulmonic Valve Name Value Normal PV Doppler PV Peak Velocity 132 cm/s PV Peak Gradient 7 mmHg PV Mean Gradient 4 mmHg Mitral Valve Name Value Normal MV Doppler MV Peak Gradient 4 mmHg MV Mean Gradient 2 mmHg MV Area (Cont Eq VTI) 4.0 cm2 MV Diastolic Function MV E Peak Velocity 72 cm/s MV A Peak Velocity 78 cm/s MV E/A 0.9 MV Decel Time (PW) 205 ms MV Annular TDI MV E/e' (Septal) 8.0 MV E/e' (Lateral) 5.3 MV E/e' (Average) 6.7 Tricuspid Valve Name Value Normal Estimated PAP/RSVP RA Pressure 3 mmHg <=5 TV Annular TDI TV Lateral Meggan s' Velocity 16.4 cm/s >=9.5 Aortic Valve Name Value Normal AV Doppler AV Peak Velocity 140 cm/s AV Peak Gradient 8 mmHg AV Mean Gradient 4 mmHg AV VTI 25 cm AV Area (Cont Eq VTI) 4.5 cm2 >=3.0 AV Area (Cont Eq Kendrick) 3.9 cm2 AV DI (Kendrick) 0.82 AV Regurgitation 2D LVOT Area 4.7 cm2 Ventricles Name Value Normal LV Dimensions 2D/MM IVS Diastolic Thickness (2D) 1.2 cm 0.6-1.0 LVID Diastole (2D) 5.4 cm 4.2-5.8 LVIW Diastolic Thickness (2D) 1.0 cm 0.6-1.0 LVID Systole (2D) 3.9 cm 2.5-4.0 LVOT Diameter 2.5 cm LV Mass (2D Cubed) 234.25 g 88.00-224.00 LV Mass Index (2D Cubed) 106 g/m2 49-115 Relative Wall Thickness (2D) 0.38 <=0.42 LV Fractional Shortening/Ejection Fraction 2D/MM LV Fractional Shortening (2D) 28 % 25-43 LV EF (2D Teichholz) 53 % LV Diastolic Volume (4C MOD) 145 ml LV EF (4C MOD) 65 % LV Diastolic Volume (2C MOD) 114 ml LV EF (2C MOD) 53 % LV Diastolic Volume (BP MOD) 133 ml 62-150 LV Diastolic Volume Index (BP MOD) 60 ml/m2 34-74 LV Systolic Volume (BP MOD) 53 ml 21-61 LV Systolic Volume Index (BP MOD) 24 ml/m2 11-31 LV EF (BP MOD) 60 % 52-72 LV Diastolic Length (4C) 9.7 cm LV Systolic Length (4C) 7.4 cm LV Stroke Volume (4C MOD) 94 ml Atria Name Value Normal LA Dimensions LA Volume (4C A-L) 79 ml LA Volume (BP A-L) 77 ml RA Dimensions RA Systolic Major Wainwright Length (4C) 5.7 cm 2.1-2.7 RA Area (4C) 21.9 cm2 <=18.0 Report Signatures
--- NOTE | 2025-05-19 | EST_ITS ---
Patient Info Name: Jelani Oliveira Age: 55 years : 1970 Gender: Male Ht: 70 in Wt: 214 lbs BSA: 2.22 m2 HR: 76 bpm BP: 147 / 96 mmHg Exam Date: 05/19/2025 8:25 AM Patient Status: I Admit Date: 05/18/2025 Exam Type: CA stress test treadmill w NM A nuclear stress test was performed. Staff Referring Physician: Rickie Guzman Attending Provider: Marcie Madrid MD Nurse: eKya Dc Exercise Technologist: Stefani Muse Summary 1. Exercise capacity fair to good at 6-10 METS. 2. No ischemic ST-T wave changes with maximum exercise. 3. Please correlate with nuclear medicine images, reported separately. Protocol: [place] Stress ECG Details Stage: REST Duration (min): 1 min : 47 sec Speed (mph): 0.0 Grade (%): 0 HR (bpm): 79 SBP (mmHg): 147 DBP (mmHg): 96 METS: --- Stage: REST Duration (min): 6 min : 57 sec Speed (mph): 0.0 Grade (%): 0 HR (bpm): 80 SBP (mmHg): 147 DBP (mmHg): 96 METS: --- Stage: STAGE 1 Duration (min): 1 min : 0 sec Speed (mph): 1.7 Grade (%): 10 HR (bpm): 111 SBP (mmHg): 147 DBP (mmHg): 96 METS: --- Stage: STAGE 1 Duration (min): 2 min : 0 sec Speed (mph): 1.7 Grade (%): 10 HR (bpm): 116 SBP (mmHg): 147 DBP (mmHg): 96 METS: --- Stage: STAGE 1 Duration (min): 3 min : 0 sec Speed (mph): 1.7 Grade (%): 10 HR (bpm): 118 SBP (mmHg): 178 DBP (mmHg): 104 METS: --- Stage: STAGE 2 Duration (min): 1 min : 0 sec Speed (mph): 2.5 Grade (%): 12 HR (bpm): 133 SBP (mmHg): 178 DBP (mmHg): 104 METS: --- Stage: STAGE 2 Duration (min): 2 min : 0 sec Speed (mph): 2.5 Grade (%): 12 HR (bpm): 143 SBP (mmHg): 182 DBP (mmHg): 96 METS: --- Stage: STAGE 2 Duration (min): 3 min : 0 sec Speed (mph): 2.5 Grade (%): 12 HR (bpm): 146 SBP (mmHg): 182 DBP (mmHg): 96 METS: --- Stage: STAGE 3 Duration (min): 0 min : 44 sec Speed (mph): 3.4 Grade (%): 14 HR (bpm): 157 SBP (mmHg): 200 DBP (mmHg): 97 METS: --- Stage: RECOVERY Duration (min): 0 min : 15 sec Speed (mph): 1.5 Grade (%): 0 HR (bpm): 161 SBP (mmHg): 200 DBP (mmHg): 97 METS: --- Stage: RECOVERY Duration (min): 1 min : 15 sec Speed (mph): 0.0 Grade (%): 0 HR (bpm): 123 SBP (mmHg): 200 DBP (mmHg): 97 METS: --- Stage: RECOVERY Duration (min): 2 min : 15 sec Speed (mph): 0.0 Grade (%): 0 HR (bpm): 99 SBP (mmHg): 153 DBP (mmHg): 95 METS: --- Stage: RECOVERY Duration (min): 3 min : 15 sec Speed (mph): 0.0 Grade (%): 0 HR (bpm): 102 SBP (mmHg): 153 DBP (mmHg): 95 METS: --- Stage: RECOVERY Duration (min): 4 min : 15 sec Speed (mph): 0.0 Grade (%): 0 HR (bpm): 94 SBP (mmHg): 153 DBP (mmHg): 95 METS: --- Stage: RECOVERY Duration (min): 5 min : 15 sec Speed (mph): 0.0 Grade (%): 0 HR (bpm): 100 SBP (mmHg): 146 DBP (mmHg): 106 METS: --- Stage: RECOVERY Duration (min): 6 min : 15 sec Speed (mph): 0.0 Grade (%): 0 HR (bpm): 92 SBP (mmHg): 146 DBP (mmHg): 106 METS: --- Stage: RECOVERY Duration (min): 6 min : 57 sec Speed (mph): 0.0 Grade (%): 0 HR (bpm): 93 SBP (mmHg): 131 DBP (mmHg): 93 METS: --- Rest HR: 80 bpm Peak HR: 161 bpm Rest Sys BP: 147 mmHg Peak Sys BP: 200 mmHg Max Pred HR: 166 bpm % Max Pred HR: 97 % Target HR: 141 bpm Max RPP: 32,200 bpm*mmHg Mckenzie Score: -5 BP Response: Normal blood pressure response Max ST Seg Deviation: 2.40 mm Total Time: 6 min : 44 sec Rest Cobb BP: 96 mmHg Peak Cobb BP: 97 mmHg Angina Score: None Total METS: 8.3 Resting ECG Sinus rhythm with no ischemic ST-T wave changes. Stress ECG Sinus tachycardia with no ischemic ST-T wave changes. Arrhythmias None. Report Signatures
[2025-05-19 01:16] LABS: Troponin I < 0.012 ng/mL (0.000-0.034)
[2025-05-19 06:25] LABS: Hematocrit 48.2 % (42.0-52.0); Hemoglobin 14.9 g/dL (14.0-18.0); Immature Granulocyte Percent A 0.1 % (0-0.5); Lymphocytes Absolute Auto 2.13 K/mm3 (0.9-3.2); Mean Corpuscular HGB Conc 30.9 g/dl (32-36); Mean Corpuscular Hemoglobin 23.0 pg (26-34); Mean Corpuscular Volume 74.5 fl (80-100); Nucleated Red Blood Cells Absolute Auto 0.000 K/mm3 (0.0-0.012); Nucleated Red Blood Cells Perc 0.0 % (0.0-0.2); Platelet Count Result 197 k/mm3 (150-375); Red Blood Count 6.47 M/mm3 (4.6-6.20); White Blood Count 6.9 K/mm3 (4.5-10.0)
[2025-05-19 06:50] LABS: Anion Gap 8 mmol/L (4-12); Blood Urea Nitrogen 14 mg/dL (9-20); Calcium 9.5 mg/dL (8.4-10.2); Carbon Dioxide 28 mmol/L (22-30); Chloride 100 mmol/L (98-107); Estimated CRCL calculation 79 ml/min; Estimated Glomerular Filt Rate > 60; Glucose 93 mg/dL (65-110); Potassium 3.8 mmol/L (3.4-5.0); Sodium 136 mmol/L (137-145)
[2025-05-19 06:52] LABS: Microcytosis 1+ (NORMAL); Ovalocytes 1+; Schistocytes None Seen
[2025-05-19 07:20] LABS: Hemoglobin A1C 5.8 % (<5.7)
[2025-05-19 11:09] LABS: Non Pathogenic Casts 0-2
--- NOTE | 2025-05-19 11:53 | P.CONCA_ITS ---
Assessment and Plan Assessment and plan (1) Acute electrocardiogram changes: Code(s): R94.31 - Abnormal electrocardiogram [ECG] [EKG] Status: Acute Assessment and Plan: Very mild ST depression in leads V4 and V5 on initial EKG which had resolved on repeat EKG. He does not have any chest pain or anginal equivalent symptoms. Troponins have been negative. He did undergo treadmill nuclear stress testing which will be reviewed and further recommendations to be made depending on the results of that study. (2) Hypertension: Code(s): I10 - Essential (primary) hypertension Status: Acute Assessment and Plan: Above goal. Increase losartan to 100 mg daily (3) Hyperlipidemia: Qualifiers: Hyperlipidemia type: pure hypercholesterolemia Qualified Code(s): E 78.00 - Pure hypercholesterolemia, unspecified Code(s): E78.5 - Hyperlipidemia, unspecified Status: Acute Assessment and Plan: Continue statin and lifestyle modifications (4) Dizziness: Code(s): R42 - Dizziness and giddiness Status: Acute Assessment and Plan: Related to hypoglycemia History of Present Illness History of Present Illness Consult date/time: 05/19/25 11:53 Reason For Visit: dizziness/ekg changes Narrative: Jelani Oliveira is a 55-year-old male with hypertension and hyperlipidemia. This is a patient who presented to the hospital with a chief complaint of dizziness. Cardiology is consulted for EKG changes. Patient reports experiencing an episode of dizziness while using the elliptical at the gym yesterday. EMS was summoned to the facility where he was working out and noted his blood glucose to be 41. He was brought to the emergency department for further evaluation. His initial EKG in the emergency department showed sinus rhythm with some mild ST depression in the anterolateral leads that resolved on repeat EKG. Patient denies any chest pain, shortness of breath, palpitations, or syncope. He is a very active person and works out frequently and does not experience any exertional chest discomfort. Since his admission to the hospital he has not had any recurrent dizziness and does not have any complaints at the time of my evaluation. Review of Systems 2 Review of Systems: All systems reviewed & are unremarkable except as noted in HPI and below PMFSH Past Medical History Medical History Hypertension Hyperlipidemia Family History Family History Father Hypertension Family history of elevated blood lipids Family history of cardiovascular disease Mother Hypertension Family history of cardiovascular disease Social History Social History Smoking status: Never smoker Second hand tobacco smoke exposure: No Alcohol intake: former Substance use: never Substance use type: does not use Lack of Transportation: No Lack of Food: Never True Current Housing: I Have Housing Concerned About Future Housing: No Difficulty Paying Gas/Electric Bills: No Difficulty Paying for Meds: No Currently Unemployed: No Education: Bachelor's Degree Difficulty w/ Childcare or Family Care: No Living arrangements: with family Occupation/Education: other Gender identity (if verbalized by the patient): Male Sexual Orientation (if Verbalized by the Patient): Straight or Heterosexual Spiritual care concerns: No Agree to blood products: Yes Meds Home Medications and Allergies Home Medications ?Medication ?Instructions ?Recorded ?Confirmed ?Type ferrous sulfate 325 mg (65 mg 325 mg PO DAILY 01/30/21 05/18/25 History iron) tablet (Feosol) multivitamin 1 tablet PO DAILY 01/30/21 0 05/18/25 History losartan 50 mg tablet 75 mg (1.5 x 50 mg) PO DAILY #135 01/02/25 05/18/25 Rx tabs sildenafil 100 mg tablet 100 mg PO DAILY PRN sexual 0 02/23/25 05/18/25 Rx activity #30 tabs atorvastatin 10 mg tablet See Rx Instructions .Route 0 04/03/25 05/18/25 Rx .COMPLEX #90 tabs Allergies Allergy/AdvReac Type Severity Reaction Status Date / Time lisinopril AdvReac Mild dry cough Verified 04/27/25 08:59 Vital Signs Vital Signs - 24 hr 05/18/25 14:04 05/18/25 14:13 05/18/25 14:17 Temperature 36.7 C 36.7 C Pulse Rate 74 74 73 Respiratory Rate 17 18 13 Blood Pressure 156/97 H 156/97 H Pulse Oximetry 100 100 100 Oxygen Delivery Room Air Room Air 05/18/25 14:18 05/18/25 14:51 05/18/25 15:06 Temperature Pulse Rate 88 73 81 Respiratory Rate 15 19 14 Blood Pressure 156/91 H Pulse Oximetry 100 100 99 Oxygen Delivery 05/18/25 15:15 05/18/25 15:25 05/18/25 15:28 Temperature Pulse Rate 91 85 90 Respiratory Rate 18 14 17 Blood Pressure 156/100 H 152/93 H Pulse Oximetry 98 99 99 Oxygen Delivery 05/18/25 15:30 05/18/25 15:59 05/18/25 16:00 Temperature Pulse Rate 82 83 77 Respiratory Rate 17 14 16 Blood Pressure Pulse Oximetry 100 100 99 Oxygen Delivery 05/18/25 16:02 05/18/25 16:03 05/18/25 16:15 Temperature Pulse Rate 91 81 84 Respiratory Rate 16 16 14 Blood Pressure 137/94 H 137/94 H Pulse Oximetry 98 98 100 Oxygen Delivery 05/18/25 16:30 05/18/25 16:45 05/18/25 17:01 Temperature Pulse Rate 81 75 73 Respiratory Rate 20 11 L 15 Blood Pressure 145/96 H Pulse Oximetry 100 100 99 Oxygen Delivery 05/18/25 17:33 05/18/25 17:41 05/18/25 17:45 Temperature Pulse Rate 70 73 77 Respiratory Rate 13 14 12 Blood Pressure 137/96 H Pulse Oximetry 98 99 100 Oxygen Delivery 05/18/25 17:46 05/18/25 17:58 05/18/25 18:00 Temperature Pulse Rate 79 86 76 Respiratory Rate 11 L 16 12 Blood Pressure 134/97 H 134/97 H Pulse Oximetry 100 99 100 Oxygen Delivery 05/18/25 18:01 05/18/25 18:18 05/18/25 18:30 Temperature Pulse Rate 84 Respiratory Rate 12 Blood Pressure 130/90 Pulse Oximetry 99 98 99 Oxygen Delivery 05/18/25 18:45 05/18/25 18:50 05/18/25 18:52 Temperature Pulse Rate 77 80 Respiratory Rate 16 19 Blood Pressure 136/112 H 148/105 H Pulse Oximetry 99 95 98 Oxygen Delivery 05/18/25 18:54 05/18/25 19:00 05/18/25 19:01 Temperature Pulse Rate 76 75 78 Respiratory Rate 26 H 13 14 Blood Pressure 136/112 H 133/94 H Pulse Oximetry 98 98 100 Oxygen Delivery 05/18/25 19:15 05/18/25 19:16 05/18/25 19:30 Temperature Pulse Rate 82 81 77 Respiratory Rate 17 16 18 Blood Pressure 149/106 H Pulse Oximetry 97 96 98 Oxygen Delivery 05/18/25 19:45 05/18/25 20:59 05/18/25 21:25 Temperature Pulse Rate 80 74 Respiratory Rate 15 Blood Pressure Pulse Oximetry 98 99 Oxygen Delivery Room Air 05/18/25 22:00 05/19/25 00:02 05/19/25 04:04 Temperature 36.6 C Pulse Rate 69 89 65 Respiratory Rate 20 Blood Pressure 153/98 H Pulse Oximetry 99 Oxygen Delivery 05/19/25 06:00 05/19/25 08:00 05/19/25 08:00 Temperature 36.9 C Pulse Rate 71 71 Respiratory Rate 18 Blood Pressure 155/89 H Pulse Oximetry 99 Oxygen Delivery Room Air 05/19/25 10:31 Temperature Pulse Rate Respiratory Rate Blood Pressure Pulse Oximetry 99 Oxygen Delivery Room Air Exam 2 Const: General: comfortable, no acute distress, alert and awake O rientation/consciousness: patient oriented x3 HENMT: Head: normal to inspection Eyes: General: appearance normal, both eyes and all related structures P upils: Equal, round and reactive pupils present Neck: Neck: normal visual inspection, supple and no JVD Carotids: normal carotid upstroke Resp: Effort & Inspection: normal respiratory effort Auscultation: clear to auscultation bilaterally Cardio: Rate: regular rate Rhythm: regular rhythm Heart sounds: S1 normal heart sound present, S2 normal heart sound present and no murmurs GI: Auscultation: normal bowel sounds Skin: General skin exam: normal color Neuro: General: patient oriented x3 Cranial nerves: Yes Equal, round and reactive pupils present Extrem: General: normal to inspection Psych: Appearance: grossly normal Mental Status: mental status grossly normal Results Labs and Meds 05/19/25 05:37 05/19/25 05:37 Lab results: Cardiac Enzymes 05/18/25 05/18/25 05/19/25 Range/Units 14:21 17:19 00:40 AST 37 (17-59) U/L Troponin I < 0.012 < 0.012 < 0.012 (0.000-0.034) ng/mL CBC 05/18/25 05/19/25 Range/Units 14:21 05:37 WBC 9.6 6.9 (4.5-10.0) K/mm3 RBC 6.44 H 6.47 H (4.6-6.20) M/mm3 Hgb 14.8 14.9 (14.0-18.0) g/dL Hct 47.6 48.2 (42.0-52.0) % Plt Count 187 197 (150-375) k/mm3 Lymph # (Auto) 1.68 2.13 (0.9-3.2) K/mm3 Gordon # (Auto) 0.7 H 0.7 H (0.1-0.6) K/mm3 Eos # (Auto) 0.3 0.3 (0-0.3) K/mm3 Baso # (Auto) 0.0 0.0 (0.0-0.1) K/mm3 Comprehensive Metabolic Panel 05/18/25 05/19/25 Range/Units 14:21 05:37 Sodium 134 L 136 L (137-145) mmol/L Potassium 3.5 3.8 (3.4-5.0) mmol/L Chloride 95 L 100 (98-107) mmol/L Carbon Dioxide 27 28 (22-30) mmol/L BUN 16 14 (9-20) mg/dL Creatinine 1.11 1.11 (0.7-1.3) mg/dL Glucose 145 H 93 (65-110) mg/dL Calcium 10.1 9.5 (8.4-10.2) mg/dL AST 37 (17-59) U/L ALT 24 (6-50) U/L Alkaline Phosphatase 78 (38-126) U/L Total Protein 8.1 (6.3-8.2) g/dL Albumin 4.8 (3.5-5.1) g/dL Intake and Output 05/18/25 05/19/25 05/19/25 23:59 07:59 15:59 Intake Total 0 Balance 0 Intake: Oral 0 Other: # Unmeasured Voids 2
--- NOTE | 2025-05-19 14:00 | P.DS_ITS ---
DS: Admitting Diagnosis Discharge Date 05/19/2025 Admitting Diagnosis Hypoglycemia/dizziness DS: Discharge Diagnosis Discharge Diagnosis (1) Acute electrocardiogram changes: Code(s): R94.31 - Abnormal electrocardiogram [ECG] [EKG] Status: Acute (2) Dizziness: Code(s): R42 - Dizziness and giddiness Status: Acute (3) Hypoglycemia: Code(s): E16.2 - Hypoglycemia, unspecified Status: Acute (4) Hyperlipidemia: Qualifiers: Hyperlipidemia type: pure hypercholesterolemia Qualified Code(s): E78.00 - Pure hypercholesterolemia, unspecified Code(s): E78.5 - Hyperlipidemia, unspecified Status: Acute DS: Summary Hospital Course Reason for hospitalization: Hypoglycemia/dizziness Hospital Course: Admission: Patient was [id number] male history of hyperlipidemia presents the hospital complaining of dizziness and weakness. Patient was at the gym complaining of weakness and dizziness and looked extremely ill so EMS was called he was found have a blood sugar of 41. Patient states that he has no history of hypoglycemia. 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 He states that he goes through periods of eating extremely healthy. He recently went on vacation enjoyed eating a lot of food so whenever he got back from vacation a started eating extremely healthy can. Patient states that a is of fruit smoothie in the morning, salad for lunch and then usually a salmon and vegetables for dinner. He states that he works out in the morning and then again in the evening at home. He states he usually does not have a protein shake until in the evening. The patient states that he has noticed that he has been will agitated lately. And often has been dreaming a few. He has not been having protein her carbs during the day. In the ED: shows glucose at 6:45 p.m., troponins negative x2, dark yellow urine negative for infection. Chest x-ray shows no acute cardiopulmonary process. EKG shows sinus rhythm rate of 68. Cardiology was consulted and is recommending a inpatient stress test. Hospital Course: Status at Discharge Functional status at discharge: independent ambulation Overall status at discharge: patient is back to baseline Time Spent with Patient Time attestation: Total time spent providing and/or coordinating discharge services: Time spent: Greater than 30 minutes DS: Data Data Completed and Pending Labs on day of discharge: Labs from last 24 hours 05/19/25 05/19/25 05/19/25 10:15 07:44 06:40 WBC RBC Hgb Hct MCV MCH MCHC RDW Plt Count MPV Immature Gran % (Auto) Neut % (Auto) Lymph % (Auto) [place] % (Auto) Eos % (Auto) Baso % (Auto) Lymph # (Auto) [place] # (Auto) Eos # (Auto) Baso # (Auto) Abs Immat Gran (auto) Absolute Neuts (auto) Absolute Nucleated RBC Band Neutrophils % Nucleated RBC % Atypical Lymphocytes Platelet Estimate Microcytosis Ovalocytes Schistocytes Sodium Potassium Chloride Carbon Dioxide Anion Gap BUN Creatinine Estim Creat Clear Calc Estimated GFR Glucose POC Capillary Glucose 96 85 92 Hemoglobin A1c Calcium Total Bilirubin AST ALT Alkaline Phosphatase Troponin I Total Protein Albumin Urine Color Urine Appearance Urine pH Ur Specific [place] Urine Protein Urine Glucose (UA) Urine Ketones Ur Blood (Man) Urine Nitrate Urine Bilirubin Urine Urobilinogen Leukocyte Esterase Rfl Urine RBC Urine WBC Ur Squamous Epith Cells Urine Bacteria Urine Casts 05/19/25 05/19/25 05/19/25 05:37 02:26 00:40 WBC 6.9 RBC 6.47 H Hgb 14.9 Hct 48.2 MCV 74.5 L MCH 23.0 L MCHC 30.9 L RDW 15.0 H Plt Count 197 MPV 11.2 H Immature Gran % (Auto) 0.1 Neut % (Auto) 54.4 Lymph % (Auto) 31.0 Mchenry % (Auto) 9.8 H Eos % (Auto) 4.4 Baso % (Auto) 0.3 Lymph # (Auto) 2.13 Mchenry # (Auto) 0.7 H Eos # (Auto) 0.3 Baso # (Auto) 0.0 Abs Immat Gran (auto) 0.01 Absolute Neuts (auto) 3.7 Absolute Nucleated RBC 0.000 Band Neutrophils % Not Reportable Nucleated RBC % 0.0 Atypical Lymphocytes Platelet Estimate Adequate Microcytosis 1+ Ovalocytes 1+ Schistocytes None seen Sodium 136 L Potassium 3.8 Chloride 100 Carbon Dioxide 28 Anion Gap 8 BUN 14 Creatinine 1.11 Estim Creat Clear Calc 79 Estimated GFR > 60 Glucose 93 POC Capillary Glucose 90 Hemoglobin A1c 5.8 H Calcium 9.5 Total Bilirubin AST ALT Alkaline Phosphatase Troponin I < 0.012 Total Protein Albumin Urine Color Urine Appearance Urine pH Ur Specific [place] Urine Protein Urine Glucose (UA) Urine Ketones Ur Blood (Man) Urine Nitrate Urine Bilirubin Urine Urobilinogen Leukocyte Esterase Rfl Urine RBC Urine WBC Ur Squamous Epith Cells Urine Bacteria Urine Casts 05/18/25 05/18/25 05/18/25 21:02 17:19 15:44 WBC RBC Hgb Hct MCV MCH MCHC RDW Plt Count MPV Immature Gran % (Auto) Neut % (Auto) Lymph % (Auto) [place] % (Auto) Eos % (Auto) Baso % (Auto) Lymph # (Auto) Mchen[place] # (Auto) Eos # (Auto) Baso # (Auto) Abs Immat Gran (auto) Absolute Neuts (auto) Absolute Nucleated RBC Band Neutrophils % Nucleated RBC % Atypical Lymphocytes Platelet Estimate Microcytosis Ovalocytes Schistocytes Sodium Potassium Chloride Carbon Dioxide Anion Gap BUN Creatinine Estim Creat Clear Calc Estimated GFR Glucose POC Capillary Glucose 163 H 137 H Hemoglobin A1c Calcium Total Bilirubin AST ALT Alkaline Phosphatase Troponin I < 0.012 Total Protein Albumin Urine Color Urine Appearance Urine pH Ur Specific [place] Urine Protein Urine Glucose (UA) Urine Ketones Ur Blood (Man) Urine Nitrate Urine Bilirubin Urine Urobilinogen Leukocyte Esterase Rfl Urine RBC Urine WBC Ur Squamous Epith Cells Urine Bacteria Urine Casts 05/18/25 05/18/25 05/18/25 14:53 14:21 14:10 WBC 9.6 RBC 6.44 H Hgb 14.8 Hct 47.6 MCV 73.9 L MCH 23.0 L MCHC 31.1 L RDW 14.8 H Plt Count 187 MPV 10.3 Immature Gran % (Auto) 0.4 Neut % (Auto) 71.4 Lymph % (Auto) 17.4 L Mchenry % (Auto) 7.1 Eos % (Auto) 3.3 Baso % (Auto) 0.4 Lymph # (Auto) 1.68 [place]henry # (Auto) 0.7 H Eos # (Auto) 0.3 Baso # (Auto) 0.0 Abs Immat Gran (auto) 0.04 H Absolute Neuts (auto) 6.9 H Absolute Nucleated RBC 0.000 Band Neutrophils % Not Reportable Nucleated RBC % 0.0 Atypical Lymphocytes Present Platelet Estimate Adequate Microcytosis 1+ Ovalocytes Schistocytes None seen Sodium 134 L Potassium 3.5 Chloride 95 L Carbon Dioxide 27 Anion Gap 12 BUN 16 Creatinine 1.11 Estim Creat Clear Calc 79 Estimated GFR > 60 Glucose 145 H POC Capillary Glucose 158 H Hemoglobin A1c Calcium 10.1 Total Bilirubin 0.5 AST 37 ALT 24 Alkaline Phosphatase 78 Troponin I < 0.012 Total Protein 8.1 Albumin 4.8 Urine Color Dark yellow Urine Appearance Clear Urine pH 7.0 Ur Specific [place] 1.016 Urine Protein Negative Urine Glucose (UA) Negative Urine Ketones 2+ H Ur Blood (Man) Negative Urine Nitrate Negative Urine Bilirubin Negative Urine Urobilinogen 0.2 Leukocyte Esterase Rfl Negative Urine RBC 0-2 Urine WBC 0-5 Ur Squamous Epith Cells None seen Urine Bacteria None seen Urine Casts 0-2 Discharge Plan Discharge Attending physician on discharge: Juana Gant Consulting providers: Rickie Guzman; Josie Fernando; Akash Solorzano Discharging Clinician: Josie Fernando Anticipated Discharge Date/Time: 05/19/25 13:48 Patient Disposition: Home Activity: may shower and as tolerated Diet: as tolerated and regular Discharge Instructions: 1). Hypoglycemic Event * I have provided an order for a glucometer to monitor blood sugars at home I recommend at least 3 times a day and to keep a log. * Your A1C was 5.8 I would continue to follow-up with primary care physician for follow-up A1C every 3 to 6 months for close monitoring * Recommend supplemental snacks prior to strenuous exercise * Monitor for symptoms such as dizziness, tremors, or diaphoresis these occur check your blood sugar levels * I have attached information regarding hypoglycemic events We did perform a stress test to rule out any cardiac event which showed normal myocardial perfusion How can you care for yourself at home? ? Keep track of any new symptoms or changes in your symptoms. ? Rest until you feel better. ? Be safe with medicines. Take your medicines exactly as prescribed. Call your doctor if you think you are having a problem with your medicine. ? Do not drive after taking a prescription pain medicine. ? Ensure to follow-up with primary care physician as indicated and provide updated medication list provided to you at discharge. When should you call for help? Call 911 anytime you think you may need emergency care. For example, call if: ? You passed out (lost consciousness). Call your doctor now or seek immediate medical care if: ? You have new symptoms like fever, difficulty breathing, Chest pain, vomiting, or rash. ? You have new or different pain. ? You are confused and are having trouble thinking clearly. ? Your symptoms are getting worse. Watch closely for changes in your health, and be sure to contact your doctor if: ? You do not get better as expected. Patient Instructions: Antibiotic Form, Non-diabetic Hypoglycemia (DC), What to Do if Your Blood Sugar is Low (DC) Patient Language: Kittitian Stand Alone Forms: General Discharge Information Follow-up/Referrals: Maryjo Craft DO [Primary Care Provider, [facility]] - 2 Weeks Discharge Medications: New (DME) blood-glucose meter [OneTouch Verio Flex meter] Misc Qty: 1 0RF Rx Instructions: May substitute to in-stock meter and/or covered by insurance. Use As Directed. Recommend monitoring three times a day (DME) OneTouch Verio test strips Strip Qty: 1 0RF Rx Instructions: May substitute to in-stock and/or covered by insurance strips. Use As Directed (DME) lancets [OneTouch Delica Plus Lancet] 30 gauge misc Qty: 1 0RF Rx Instructions: May substitute to in-stock and/or covered by insurance lancets. Use As Directed Continued multivitamin Tablet 1 tablet PO DAILY Patient Comments: Myovite supplement packet ferrous sulfate [Feosol] 325 mg (65 mg iron) tablet 325 mg PO DAILY losartan 50 mg tablet 75 mg PO DAILY Qty: 135 1RF sildenafil 100 mg tablet 100 mg PO DAILY PRN (Reason: sexual activity) Qty: 30 0RF Rx Instructions: administer 30 minutes to 4 hours before activity atorvastatin 10 mg tablet See Rx Instructions .ROUTE .COMPLEX Qty: 90 1RF Dose Instruction: TAKE 1 TABLET BY MOUTH EVERY DAY Rx Instructions: TAKE 1 TABLET BY MOUTH EVERY DAY hydrochlorothiazide 25 mg tablet 25 mg PO DAILY Qty: 90 1RF Date of admission: 05/18/25 18:39 Primary Care Provider: Maryjo Craft Admitting Provider: Julius,Marcei Attending physician on admission: Marcie Madrid Condition: Stable Quality VTE Prophylaxis VTE prophylaxis: mechanical ordered -Patient's previous records reviewed on admission -ER notes reviewed in detail on admission -discussed all findings and current treatment plan with patient/Family/POA -Consultations reviewed for recommendations -Patient's disposition for safe discharge discussed with correctional case records supervisor Dictation performed by [employer] direct speech recognition software, therefore supervisor machining variants and typographical errors may occur. Hospitalist MIPS Heart Failure (Exclusion) Patient has history of Heart Transplant or Left Ventricular Assistive Device?: No IF YES, STOP HERE Heart Failure (Qualifier) Patient has current or prior documentation of LVEF less than or equal to 40%, or mod/servere depressed LVSF?: No IF NO, STOP HERE
--- NOTE | 2025-05-19 14:24 | P.DS_ITS ---
DS: Admitting Diagnosis Discharge Date 05/19/2025 <Akash Solorzano Last Filed: 05/19/25 14:44> Admitting Diagnosis Dizziness, hypoglycemia, EKG changes <Akash Solorzano Last Filed: 05/19/25 14:44> DS: Discharge Diagnosis Discharge Diagnosis (1) Hypoglycemia: Code(s): E16.2 - Hypoglycemia, unspecified <Akash Solorzano Last Filed: 05/19/25 14:44> Status: Acute <Akash Solorzano Last Filed: 05/19/25 14:44> Assessment and Plan: One documented hypoglycemic event of 41 g/dL * No further hypoglycemic events during hospitalization * Discharge with prescription for glucometer, test strips and lancets * Instructed to keep a log of blood glucose readings to take to his primary care provider at follow up <Akash Solorzano, Last Filed: 05/19/25 14:44> (2) ST segment depression: Code(s): R94.31 - Abnormal electrocardiogram [ECG] [EKG] <Akash Solorzano Last Filed: 05/19/25 14:44> Status: Resolved <Akash Solorzano Last Filed: 05/19/25 14:44> Assessment and Plan: Transient st depression noted on initial EKG * Resolved on repeat EKG * Stress test normal * No further symptoms reported or observed <Akash Solorzano Last Filed: 05/19/25 14:44> DS: Summary Hospital Course Reason for hospitalization: Patient presented to the hospital yesterday after he became dizzy and lightheaded at home. En route to the hospital the patient was noted to have a blood glucose of 41 g/dL for which he received one dose of oral glucose with resolution of hypoglycemia. In ED, initial EKG showed st depression which had resolved on the repeat EKG. Patient was admitted for further evaluation and management of his hypoglycemia and EKG changes. During evaluation the patient was found to be in no distress. Denies chest pain, shortness of breath, abdominal pain, dizziness or lightheadedness. Stress this morning interpreted as normal. Patient expresses his desire to discharge to home. Patient was instructed to monitor his blood glucose levels at home and keep a log. Plan to discharge with prescription for glucometer, test strips and lancets. Patient was also instructed to increase protein intake prior to excercising to reduce the liklihood of hypoglycemic events during excercise. <Jese Rodgers - Last Filed: 05/19/25 14:44> Hypoglycemia/dizziness <Josie Fernando, MILL SUPERVISOR - Last Filed: 05/19/25 15:27> Hospital Course: Patient presented to the hospital yesterday after he became dizzy and lightheaded at home. En route to the hospital the patient was noted to have a blood glucose of 41 g/dL for which he received one dose of oral glucose with resolution of hypoglycemia. In ED, initial EKG showed st depression which had resolved on the repeat EKG. Patient was admitted for further evaluation and management of his hypoglycemia and EKG changes. Patient admitted to the medical unit with q.6 Accu-Cheks and plans for stress in the a.m. During evaluation the patient was found to be in no distress. Denies chest pain, shortness of breath, abdominal pain, dizziness or lightheadedness and glucose levels remained stable during hospitalization with no need for any further interventions. Stress this morning interpreted as normal. Patient expresses his desire to discharge to home. Patient was instructed to monitor his blood glucose levels at home and keep a log. Plan to discharge with prescription for glucometer, test strips and lancets. Patient was also instructed to increase protein intake prior to excercising to reduce the liklihood of hypoglycemic events during excercise. <Josie Fernando, DINORAH - Last Filed: 05/19/25 15:27> Status at Discharge Functional status at discharge: independent ambulation <Akash Solorzano Student - Last Filed: 05/19/25 14:44> Overall status at discharge: patient is back to baseline <Akash Solorzano Student - Last Filed: 05/19/25 14:44> Time Spent with Patient Time attestation: Total time spent providing and/or coordinating discharge services: <Akash Solorzano Last Filed: 05/19/25 14:44> Time spent: Greater than 30 minutes <Akash Solorzano Last Filed: 05/19/25 14:44> Exam Const: General: comfortable and no acute distress <Akash Solorzano - Last Filed: 05/19/25 14:44> HENMT: Ears: TM's normal bilaterally <Aksah Solorzano Last Filed: 05/19/25 14:44> Face/Nose/Sinus: Normal nares present <Akash Solorzano Last Filed: 05/19/25 14:44> Mouth: Yes moist mucous membranes <Akash Solorzano Last Filed: 05/19/25 14:44> Eyes: General: appearance normal, both eyes and all related structures <Akash Solorzano Last Filed: 05/19/25 14:44> Sclera: sclerae normal <Akash Solorzano Last Filed: 05/19/25 14:44> Pupils: Equal, round and reactive pupils present <Akash Solorzano Last Filed: 05/19/25 14:44> Neck: Neck: supple and no JVD <Akash Solorzano Last Filed: 05/19/25 14:44> Resp: Effort & Inspection: normal respiratory effort <Akash Solorzano Last Filed: 05/19/25 14:44> Auscultation: clear to auscultation bilaterally <Akash Solorzano Last Filed: 05/19/25 14:44> Cardio: Rate: regular rate <Akash Solorzano Last Filed: 05/19/25 14:44> Rhythm: regular rhythm <Akash Solorzano Last Filed: 05/19/25 14:44> GI: GI Palp: Yes Soft to palpation <Akash Solorzano Student - Last Filed: 05/19/25 14:44> Auscultation: normal bowel sounds <Akash Olveraveda - Last Filed: 05/19/25 14:44> Skin: General skin exam: normal color and no rashes or lesions noted <Akash Olveraveda - Last Filed: 05/19/25 14:44> Wounds: no wounds <Akash SantanaTimbo Wadeveda - Last Filed: 05/19/25 14:44> Neuro: General: gait normal <Akash SantanaTimbo Waderuchikenneth, - Last Filed: 05/19/25 14:44> Motor exam (neuro): 5/5 motor strength present throughout <Akash SantanaTimbo Wadeveda - Last Filed: 05/19/25 14:44> Sensory Exam: normal sensation <Akash Olveraruchikenneth - Last Filed: 05/19/25 14:44> Extrem: General: normal to inspection <Akash SantanaTimbo Wadeveda - Last Filed: 05/19/25 14:44> Psych: Mental Status: mental status grossly normal <Akash Olveraruchikenneth Last Filed: 05/19/25 14:44> DS: Data Data Completed and Pending Labs on day of discharge: Labs from last 24 hours 05/19/25 05/19/25 05/19/25 10:15 07:44 06:40 WBC RBC Hgb Hct MCV MCH MCHC RDW Plt Count MPV Immature Gran % (Auto) Neut % (Auto) Lymph % (Auto) [place] % (Auto) Eos % (Auto) Baso % (Auto) Lymph # (Auto) [place] # (Auto) Eos # (Auto) Baso # (Auto) Abs Immat Gran (auto) Absolute Neuts (auto) Absolute Nucleated RBC Band Neutrophils % Nucleated RBC % Atypical Lymphocytes Platelet Estimate Microcytosis Ovalocytes Schistocytes Sodium Potassium Chloride Carbon Dioxide Anion Gap BUN Creatinine Estim Creat Clear Calc Estimated GFR Glucose POC Capillary Glucose 96 85 92 Hemoglobin A1c Calcium Total Bilirubin AST ALT Alkaline Phosphatase Troponin I Total Protein Albumin Urine Color Urine Appearance Urine pH Ur Specific [place] Urine Protein Urine Glucose (UA) Urine Ketones Ur Blood (Man) Urine Nitrate Urine Bilirubin Urine Urobilinogen Leukocyte Esterase Rfl Urine RBC Urine WBC Ur Squamous Epith Cells Urine Bacteria Urine Casts 05/19/25 05/19/25 05/19/25 05:37 02:26 00:40 WBC 6.9 RBC 6.47 H Hgb 14.9 Hct 48.2 MCV 74.5 L MCH 23.0 L MCHC 30.9 L RDW 15.0 H Plt Count 197 MPV 11.2 H Immature Gran % (Auto) 0.1 Neut % (Auto) 54.4 Lymph % (Auto) 31.0 [place] % (Auto) 9.8 H Eos % (Auto) 4.4 Baso % (Auto) 0.3 Lymph # (Auto) 2.13 [place] # (Auto) 0.7 H Eos # (Auto) 0.3 Baso # (Auto) 0.0 Abs Immat Gran (auto) 0.01 Absolute Neuts (auto) 3.7 Absolute Nucleated RBC 0.000 Band Neutrophils % Not Reportable Nucleated RBC % 0.0 Atypical Lymphocytes Platelet Estimate Adequate Microcytosis 1+ Ovalocytes 1+ Schistocytes None seen Sodium 136 L Potassium 3.8 Chloride 100 Carbon Dioxide 28 Anion Gap 8 BUN 14 Creatinine 1.11 Estim Creat Clear Calc 79 Estimated GFR > 60 Glucose 93 POC Capillary Glucose 90 Hemoglobin A1c 5.8 H Calcium 9.5 Total Bilirubin AST ALT Alkaline Phosphatase Troponin I < 0.012 Total Protein Albumin Urine Color Urine Appearance Urine pH Ur Specific [place] Urine Protein Urine Glucose (UA) Urine Ketones Ur Blood (Man) Urine Nitrate Urine Bilirubin Urine Urobilinogen Leukocyte Esterase Rfl Urine RBC Urine WBC Ur Squamous Epith Cells Urine Bacteria Urine Casts 05/18/25 05/18/25 05/18/25 21:02 17:19 15:44 WBC RBC Hgb Hct MCV MCH MCHC RDW Plt Count MPV Immature Gran % (Auto) Neut % (Auto) Lymph % (Auto) [place] % (Auto) Eos % (Auto) Baso % (Auto) Lymph # (Auto) [place] # (Auto) Eos # (Auto) Baso # (Auto) Abs Immat Gran (auto) Absolute Neuts (auto) Absolute Nucleated RBC Band Neutrophils % Nucleated RBC % Atypical Lymphocytes Platelet Estimate Microcytosis Ovalocytes Schistocytes Sodium Potassium Chloride Carbon Dioxide Anion Gap BUN Creatinine Estim Creat Clear Calc Estimated GFR Glucose POC Capillary Glucose 163 H 137 H Hemoglobin A1c Calcium Total Bilirubin AST ALT Alkaline Phosphatase Troponin I < 0.012 Total Protein Albumin Urine Color Urine Appearance Urine pH Ur Specific [place] Urine Protein Urine Glucose (UA) Urine Ketones Ur Blood (Man) Urine Nitrate Urine Bilirubin Urine Urobilinogen Leukocyte Esterase Rfl Urine RBC Urine WBC Ur Squamous Epith Cells Urine Bacteria Urine Casts 05/18/25 05/18/25 14:53 14:21 WBC 9.6 RBC 6.44 H Hgb 14.8 Hct 47.6 MCV 73.9 L MCH 23.0 L MCHC 31.1 L RDW 14.8 H Plt Count 187 MPV 10.3 Immature Gran % (Auto) 0.4 Neut % (Auto) 71.4 Lymph % (Auto) 17.4 L [place] % (Auto) 7.1 Eos % (Auto) 3.3 Baso % (Auto) 0.4 Lymph # (Auto) 1.68 [place] # (Auto) 0.7 H Eos # (Auto) 0.3 Baso # (Auto) 0.0 Abs Immat Gran (auto) 0.04 H Absolute Neuts (auto) 6.9 H Absolute Nucleated RBC 0.000 Band Neutrophils % Not Reportable Nucleated RBC % 0.0 Atypical Lymphocytes Present Platelet Estimate Adequate Microcytosis 1+ Ovalocytes Schistocytes None seen Sodium 134 L Potassium 3.5 Chloride 95 L Carbon Dioxide 27 Anion Gap 12 BUN 16 Creatinine 1.11 Estim Creat Clear Calc 79 Estimated GFR > 60 Glucose 145 H POC Capillary Glucose Hemoglobin A1c Calcium 10.1 Total Bilirubin 0.5 AST 37 ALT 24 Alkaline Phosphatase 78 Troponin I < 0.012 Total Protein 8.1 Albumin 4.8 Urine Color Dark yellow Urine Appearance Clear Urine pH 7.0 Ur Specific [place] 1.016 Urine Protein Negative Urine Glucose (UA) Negative Urine Ketones 2+ H Ur Blood (Man) Negative Urine Nitrate Negative Urine Bilirubin Negative Urine Urobilinogen 0.2 Leukocyte Esterase Rfl Negative Urine RBC 0-2 Urine WBC 0-5 Ur Squamous Epith Cells None seen Urine Bacteria None seen Urine Casts 0-2 <Akash Solorzano, Student - Last Filed: 05/19/25 14:44> Discharge Plan Discharge Attending physician on discharge: Ju[place] Gant <Akash Solorzano, Student - Last Filed: 05/19/25 14:44> [place] <Josie Fernando APRN - Last Filed: 05/19/25 15:27> Consulting providers: Rickie Guzman; Josie Fernando; Akash Solorzano <Akash Solorzano, Student - Last Filed: 05/19/25 14:44> Discharging Clinician: Josie Fernando <Akash Solorzano, Student - Last Filed: 05/19/25 14:44> Josie Fernando <Josie Fernando, MILL SUPERVISOR - Last Filed: 05/19/25 15:27> Anticipated Discharge Date/Time: 05/19/25 13:48 <Akash Solorzano, - Last Filed: 05/19/25 14:44> Patient Disposition: Home <Akash Solorzano - Last Filed: 05/19/25 14:44> Activity: may shower and as tolerated <Akash Solorzano Student - Last Filed: 05/19/25 14:44> may shower and as tolerated <Josie Fernando, MILL SUPERVISOR - Last Filed: 05/19/25 15:27> Diet: heart healthy <Akash Solorzano - Last Filed: 05/19/25 14:44> heart healthy <Josie Fernando, MILL SUPERVISOR - Last Filed: 05/19/25 15:27> Wound Care Instructions: follow printed instructions <Akash Solorzano - Last Filed: 05/19/25 14:44> follow printed instructions <oJsie Fernando, MILL SUPERVISOR - Last Filed: 05/19/25 15:27> Discharge Instructions: 1). Hypoglycemic Event * I have provided an order for a glucometer to monitor blood sugars at home I recommend at least 3 times a day and to keep a log. * Your A1C was 5.8 I would continue to follow-up with primary care physician for follow-up A1C every 3 to 6 months for close monitoring * Recommend supplemental snacks prior to strenuous exercise * Monitor for symptoms such as dizziness, tremors, or diaphoresis these occur check your blood sugar levels * I have attached information regarding hypoglycemic events We did perform a stress test to rule out any cardiac event which showed normal myocardial perfusion How can you care for yourself at home? ? Keep track of any new symptoms or changes in your symptoms. ? Rest until you feel better. ? Be safe with medicines. Take your medicines exactly as prescribed. Call your doctor if you think you are having a problem with your medicine. ? Do not drive after taking a prescription pain medicine. ? Ensure to follow-up with primary care physician as indicated and provide updated medication list provided to you at discharge. When should you call for help? Call 911 anytime you think you may need emergency care. For example, call if: ? You passed out (lost consciousness). Call your doctor now or seek immediate medical care if: ? You have new symptoms like fever, difficulty breathing, Chest pain, vomiting, or rash. ? You have new or different pain. ? You are confused and are having trouble thinking clearly. ? Your symptoms are getting worse. Watch closely for changes in your health, and be sure to contact your doctor if: ? You do not get better as expected. <Akash Solorzano Student - Last Filed: 05/19/25 14:44> Patient Instructions: Antibiotic Form, Non-diabetic Hypoglycemia (DC), What to Do if Your Blood Sugar is Low (DC) <Akash Solorzano Student - Last Filed: 05/19/25 14:44> Patient Language: Barbadian <Akash Solorzano Student - Last Filed: 05/19/25 14:44> Stand Alone Forms: General Discharge Information <Akash Solorzano Student - Last Filed: 05/19/25 14:44> Follow-up/Referrals: Maryjo Craft DO [Primary Care Provider, Family Practice] - 2 Weeks <Akash Solorzano Student - Last Filed: 05/19/25 14:44> Discharge Medications: New (DME) blood-glucose meter [OneTouch Verio Flex meter] [facility] Qty: 1 0RF Rx Instructions: May substitute to in-stock meter and/or covered by insurance. Use As Directed. Recommend monitoring three times a day (DME) OneTouch Verio test strips Strip Qty: 1 0RF Rx Instructions: May substitute to in-stock and/or covered by insurance strips. Use As Directed (DME) lancets [OneTouch Delica Plus Lancet] 30 gauge misc Qty: 1 0RF Rx Instructions: May substitute to in-stock and/or covered by insurance lancets. Use As Directed Continued multivitamin Tablet 1 tablet PO DAILY Patient Comments: Myovite supplement packet ferrous sulfate [Feosol] 325 mg (65 mg iron) tablet 325 mg PO DAILY losartan 50 mg tablet 75 mg PO DAILY Qty: 135 1RF sildenafil 100 mg tablet 100 mg PO DAILY PRN (Reason: sexual activity) Qty: 30 0RF Rx Instructions: administer 30 minutes to 4 hours before activity atorvastatin 10 mg tablet See Rx Instructions .ROUTE .COMPLEX Qty: 90 1RF Dose Instruction: TAKE 1 TABLET BY MOUTH EVERY DAY Rx Instructions: TAKE 1 TABLET BY MOUTH EVERY DAY hydrochlorothiazide 25 mg tablet 25 mg PO DAILY Qty: 90 1RF <Akash Solorzano Student - Last Filed: 05/19/25 14:44> Date of admission: 05/18/25 18:39 <Akash Solorzano Student - Last Filed: 05/19/25 14:44> Primary Care Provider: Maryjo Craft <Akash Solorzano Student - Last Filed: 05/19/25 14:44> Admitting Provider: Marcie Madrid <Akash Solorzano Student - Last Filed: 05/19/25 14:44> Attending physician on admission: Marcie Madrid <Akash Solorzano Student - Last Filed: 05/19/25 14:44> Condition: Stable <Akash Solorzano Student - Last Filed: 05/19/25 14:44> Hospitalist MIPS Heart Failure (Exclusion) Patient has history of Heart Transplant or Left Ventricular Assistive Device?: No <Akash Solorzano Student - Last Filed: 05/19/25 14:44> IF YES, STOP HERE: Heart Failure (Qualifier) Patient has current or prior documentation of LVEF less than or equal to 40%, or mod/servere depressed LVSF?: No <Akash Solorzano, Student - Last Filed: 05/19/25 14:44> IF NO, STOP HERE:
== END 2025-05-19 14:35 | disposition home or self-care (01) ==
LOC: ANHED 18:33 → ANH3MEDSUR 05-19 08:38
PROVIDERS: Nurse Practitioner Gerontology; Admitting Provider Family Medicine; Emergency Provider Emergency Medicine; PCP Family Medicine; Visit Provider General Practice
DX: E16.2 Hypoglycemia, unspecified (principal); R42 Dizziness and giddiness; R94.31 Abnormal electrocardiogram [ECG] [EKG]; E78.5 Hyperlipidemia, unspecified; I10 Essential (primary) hypertension
CPT/HCPCS: 36415; 71046; 78452; 80048; 80053; 81001; 82948; 83036; 84484; 85025; 93005; 93017; 93306; 99285; A9502; G0378